=== PATIENT | male | born 1975 | race Caucasian/White ===

== ENCOUNTER 2017-06-18 22:28 | Emergency (ER) | payer BC, MEDICAID ==
[~2017-06-18] VITALS: Ht 157.5 cm; Wt 79.2 kg
[~2017-06-18 22:28] MED LIST: ABIL10TA8 PO; AMBI10TA PO; ESCI20TA PO; NICO21DI2 T-DERMAL; SUMA100T2 PO
[2017-06-18 23:14] VITALS: BP 133/75; PULSE 133; RESP 20; TEMP 101.6; O2SAT 95
[2017-06-18] MEDS ORDERED: AUGM875T3 PO (23:22)
[2017-06-18] MEDS ORDERED: CETI1TAB53 PO ×2 (23:22)
[2017-06-19 01:14] VITALS: BP 134/74; PULSE 115; RESP 18; TEMP 99.3; O2SAT 98
--- NOTE | 2017-06-19 01:41 | PD ---
HPI Chief Complaint: Pain: Acute or Chronic Time Seen by Provider: 01:33 Travel History International Travel<30 days: No Contact w/Intl Traveler<30days: No Traveled to known affect area: No History of Present Illness HPI The patient is a 41-year-old male that coughed at 7:30 PM and felt pain on the right anterior lower ribs. He felt a pop. He has exquisite pain and tenderness in that area now. He smokes a pack and a half a day. He denies any fever. He has had a chronic cough. He denies any significant shortness of breath. PFSH Past Medical History Anxiety: Yes Depression: Yes Diminished Hearing: No Tetanus Vaccination: Unknown Influenza Vaccination: Yes Past Surgical History Other Surgery: Yes (Cyst removal from neck ) Social History Alcohol Use: Yes (OCCAS) Tobacco Use: Yes (06/08 PPD) Substance Use: No Allergies-Medications (Allergen,Severity, Reaction): Coded Allergies: acetaminophen (Unverified Adverse Reaction, Unknown, GI UPSET, 06/18/17) oxycodone (Unverified Adverse Reaction, Unknown, GI UPSET, 06/18/17) Reported Meds & Prescriptions Reported Meds & Active Scripts Active Nicotine Patch (Nicotine) 21 Mg/24 Hr Patch 21 Mg T-DERMAL DAILY Ambien (Zolpidem Tartrate) 10 Mg Tab 10 Mg PO HS PRN Escitalopram (Escitalopram Oxalate) 20 Mg Tab 20 Mg PO DAILY Abilify (Aripiprazole) 10 Mg Tab 10 Mg PO DAILY Reported Augmentin (Amoxicillin-Clavulanate) 875-125 Mg Tab 1 Tab PO BID Zyrtec-D Tablet (Cetirizine HCl/Pseudoephedrine) 5 Mg-120 Mg Tab.er.12h 1 Tab PO Q12HR Zyrtec-D Tablet (Cetirizine HCl/Pseudoephedrine) 5 Mg-120 Mg Tab.er.12h 1 Tab PO DAILY Review of Systems Except as stated in HPI: all other systems reviewed are Neg Physical Exam Narrative GENERAL: The patient is alert, oriented 3 in moderate apparent distress with areas right anterior rib pain. His vital signs show temperature 101.6 with a heart rate of 133 and oximetry 95%. SKIN: Focused skin assessment warm/dry. No skin rash is present. HEAD: Atraumatic. Normocephalic. EYES: Pupils equal and round. No scleral icterus. No injection or drainage. ENT: No nasal bleeding or discharge. Mucous membranes pink and moist. NECK: Trachea midline. No JVD. CARDIOVASCULAR: Regular rate and rhythm. No murmur appreciated. RESPIRATORY: No accessory muscle use. Clear to auscultation. Breath sounds equal bilaterally. I can completely reproduce the patient's pain by pressing on the chest wall on the right anterior ribs where he perceives the pain. No crepitus is present, neither bony nor air. GASTROINTESTINAL: Abdomen soft, non-tender, nondistended. Hepatic and splenic margins not palpable. No guarding or rebound is present. MUSCULOSKELETAL: No obvious deformities. No clubbing. No cyanosis. No edema. NEUROLOGICAL: Awake and alert. No obvious cranial nerve deficits. Motor grossly within normal limits. Normal speech. PSYCHIATRIC: Appropriate mood and affect; insight and judgment normal. Data Data Last Documented VS Vital Signs Date Time Temp Pulse Resp B/P (MAP) Pulse Ox O2 Delivery O2 Flow Rate FiO2 06/19/17 01:14 99.3 115 18 134/74 (94) 98 Room Air Orders Orders Influenzae A/B Antigen (06/19/17 01:42) Chest, Pa & Lat (06/19/17 01:42) MDM Medical Decision Making Medical Screen Exam Complete: Yes Emergency Medical Condition: Yes Medical Record Reviewed: Yes Interpretation(s) The influenza A/B antigen is negative for flu a and flu B antigen. The chest x- ray is normal. Differential Diagnosis Pneumothorax, rib fracture, pneumonia, bronchitis Narrative Course The patient has a rib fracture. Clinically he has exquisite tenderness over the ribs and felt a "pop". This was followed by sudden onset of pain. Plan: He will take Motrin 600 mg 3 times daily and follow-up with his primary care physician next week. He is given 2 days off work. He is told to cough and deep breathe and discontinue smoking. Diagnosis Primary Impression: Right rib fracture Additional Instructions: As we discussed, discontinue smoking. Cough and deep breathe and drink plenty of liquids so that you can clean your lungs out. The Motrin is taken regularly , 1 tablet 3 times daily. Usually after 3 or 4 days he levels in your bladder high enough to where the pain started subsiding. Follow-up with her primary care physician next week. Med/Other Pt SpecificInfo: Prescription(s) given Scripts Ibuprofen (Ibuprofen) 600 Mg Tab 600 MG PO TID, #44 TAB 0 Refills Prov: Albin Joy MD 06/19/17 Disposition: 01 DISCHARGE HOME Condition: Stable Albin Joy MD Jun 19, 2017 01:41
--- NOTE | 2017-06-19 02:16 | RADRPT ---
EXAM DATE/TIME: 06/19/2017 01:53 [facility] COMPARISON: No previous studies available for comparison. INDICATIONS : Cough. MEDICAL HISTORY : None. SURGICAL HISTORY : None. ENCOUNTER: Initial ACUITY: 1 day PAIN SCORE: 8/10 LOCATION: Bilateral chest FINDINGS: PA and lateral views of the chest demonstrate the lungs to be symmetrically aerated without evidence of mass, infiltrate or effusion. The cardiomediastinal contours are unremarkable. Osseous structure s are intact. CONCLUSION: No acute disease. Zak Song MD on June 19, 2017 at 2:14 Board Certified Radiologist. This report was verified electronically.
[2017-06-19] MEDS ORDERED: IBUP-232 PO (02:25)
[2017-06-19] MEDS ORDERED: IBUPROFEN 800 MG TAB PO ONE (02:30)
[2017-06-19 02:40] VITALS: BP 130/75; TEMP 98.8
== END 2017-06-19 02:41 | disposition home or self-care (01) ==
LOC: PHED 22:28
DX: S22.31XA Fracture of one rib, right side, initial encounter for closed fracture (principal); R05 Cough; R50.9 Fever, unspecified; F41.8 Other specified anxiety disorders; F17.200 Nicotine dependence, unspecified, uncomplicated; X58.XXXA Exposure to other specified factors, initial encounter
CPT/HCPCS: 71046; 87804; 99284